=== PATIENT | male | born 1970 | race Caucasian/White ===

== ENCOUNTER 2018-06-12 08:18 | Day surgery (SDC) | payer OTHER ==
[2018-06-11 11:56] VITALS: BMI 35.5
[2018-06-12] MEDS ORDERED: MIDAZOLAM HCL 2 MG/2 ML SINGLE DOSE VIAL ONE (10:41)
--- NOTE | 2018-06-12 10:46 | HP ---
Admitting History and Physical - Admission Chief Complaint: supraumbilical bulge History of Present Illness: 47 y.o male presents with supraumbilical bulge. CT A/P showed epigastric and umbilical hernias. History Source: Patient Limitations to Obtaining History: No Limitations - Past Medical History Cardiovascular: Yes: HTN Pulmonary: Yes: Asthma, COPD Additional Past Medical History: Hyperlipidemia - Smoking History Smoking history: Never smoked - Alcohol/Substance Use Hx Alcohol Use: Yes (socially) Home Medications - Allergies Allergies/Adverse Reactions: Allergies Allergy/AdvReac Type Severity Reaction Status Date / Time No Known Allergies Allergy Verified 06/11/18 11:59 - Home Medications Home Medications: Ambulatory Orders Albuterol Sulfate Inhaler - [Ventolin HFA Inhaler -] 1 inh IH PRN PRN 06/11/18 Hydrochlorothiazide [Hctz -] 1 tab PO DAILY 06/11/18 Review of Systems - Review of Systems Constitutional: reports: No Symptoms Gastrointestinal: reports: Abdominal Pain (mild) Physical Examination Vital Signs: Vital Signs Temperature 98.0 F 06/12/18 08:39 Pulse Rate 73 06/12/18 08:39 Respiratory Rate 18 06/12/18 08:39 Blood Pressure 137/93 06/12/18 08:39 O2 Sat by Pulse Oximetry (%) 98 06/12/18 08:39 Constitutional: Yes: Well Nourished Eyes: Yes: Conjunctiva Clear HENT: Yes: Normocephalic Neck: Yes: Supple Cardiovascular: Yes: Regular Rate and Rhythm Respiratory: Yes: CTA Bilaterally Gastrointestinal: Yes: Normal Bowel Sounds, Soft, Other (partially reducible epigastric bulge) ...Rectal Exam: Yes: Deferred Imaging - Results Cat Scan: Report Reviewed, Image Reviewed Problem List - Problems (1) Umbilical hernia Assessment/Plan: robotic umbilical and epigastric hernia repair with mesh Code(s): K42.9 - UMBILICAL HERNIA WITHOUT OBSTRUCTION OR GANGRENE (2) Epigastric hernia Assessment/Plan: robotic umbilical and epigastric hernia repair with mesh Code(s): K43.9 - VENTRAL HERNIA WITHOUT OBSTRUCTION OR GANGRENE
[2018-06-12] MEDS ORDERED: BUPIVACAINE HCL/PF 0.5% (5MG/ML) 10 ML VIAL ONE (10:54)
[2018-06-12] MEDS ORDERED: DEXAMETHASONE SOD PHOSPHATE 4 MG/1 ML VIAL ONE ×2 (11:07→13:16)
[2018-06-12] MEDS ORDERED: LIDOCAINE HCL/PF 2% SDV 5ML VIAL ONE (11:10)
[2018-06-12] MEDS ORDERED: PROPOFOL 20 ML ONE ×2 (11:10)
[2018-06-12] MEDS ORDERED: ROCURONIUM BROMIDE 50 MG/5 ML VIAL ONE ×2 (11:12)
[2018-06-12] MEDS ORDERED: ceFAZolin SODIUM 1 GM VIAL ONE (11:13)
[2018-06-12] MEDS ORDERED: ceFAZolin SODIUM 1 GM VIAL IVPB ONE (11:14)
[2018-06-12] MEDS ORDERED: BUPIVACAINE HCL/PF 0.5% (5MG/ML) 10 ML VIAL IJ ONE (11:57)
[2018-06-12] MEDS ORDERED: PROMETHAZINE HCL 25 MG/1 ML VIAL IVPUSH PRN (12:35)
[2018-06-12] MEDS ORDERED: oxyCODONE HCL 5 MG TABLET PO PRN (12:35)
[2018-06-12] MEDS ORDERED: LACTATED RINGERS SOLUTION 1,000 ML IV SCH (12:45)
[2018-06-12] MEDS ORDERED: GLYCOPYRROLATE 0.2 MG/1 ML VIAL ONE (13:19)
[2018-06-12] MEDS ORDERED: NEOSTIGMINE METHYLSULFATE 0.5 MG/ML - 10 ML MDV ONE (13:19)
[2018-06-12] MEDS ORDERED: KETOROLAC TROMETHAMINE 30 MG/1 ML VIAL IVPUSH ONE (14:04)
[2018-06-12] MEDS ORDERED: ACETAMINOPHEN 1000 MG/100 ML VIAL (NON FORMULARY) IVPB ONE (14:04)
--- NOTE | 2018-06-12 14:14 | OP ---
DATE OF OPERATION: 06/12/2018 PROCEDURE: Robotically assisted laparoscopic epigastric paraumbilical umbilical hernia repair with mesh. PREOPERATIVE DIAGNOSIS: Epigastric and ventral hernia. POSTOPERATIVE DIAGNOSIS: Multiple ventral hernias, epigastric paraumbilical and umbilical hernias. SURGEON: Antolin Cline MD FRANCHISE SPECIALIST: LYNETTE Rodriguez ANESTHESIA: General endotracheal. FINDINGS ON PROCEDURE: This is a 47-year-old male who presents with supraumbilical or epigastric bulge, which was partially reducible. A CT scan of the abdomen and pelvis revealed umbilical, supraumbilical, or epigastric hernias. Patient was advised elective repair of the hernias to prevent incarceration or strangulation. Consent was obtained after discussing the risks, benefits, and alternatives of the procedure. DESCRIPTION OF PROCEDURE: Patient was brought to the operating room and placed in supine position. General endotracheal anesthesia was administered. Both arms were then tucked to the side. The abdomen was prepped and draped in the usual sterile fashion. Using 0.5% Marcaine, local anesthesia was administered at the proposed incision sites. A left subcostal 8-mm incision was made using scalpel blade No. 15 at 15 cm away from the midline. Using Veress needle technique, the pneumoperitoneum was established. This was followed by insertion of an 8-mm port. The 3D laparoscope was inserted and peritoneal cavity was carefully inspected and was noted to be free of inadvertent injury. Incarcerated omentum was noted. Two 8-mm ports were inserted at the left flank, 8 cm away from each other. The target organ was set, and the robotic arms were docked. A fenestrated bipolar forceps was inserted at the left lower quadrant port, and EndoWrist abdirizak was inserted at the left upper quadrant port. This was connected to monopolar cautery. The undersigned scrubbed out to commence the console part of the procedure. The incarcerated omentum was taken down sharply using the EndoWrist abdirizak, and 3 hernias were noted which were about 3 cm in their diameter. The parietal peritoneum when containing dense amount of fat was taken down sharply as well as the sac of the umbilical hernia. After the fat was cleared, the paraumbilical and epigastric hernias were closed transversely using the V-Loc No. 1 non-absorbable suture. The umbilical hernia was closed vertically also using the V-Loc No. 1 non-absorbable suture. The Symbotex Mesh 15 x 10 cm in size was deployed and anchored to the posterior abdominal wall with 3 V-Loc 2-0 absorbable sutures. After deployment was deemed satisfactory, the robotic arms were undocked, and the pneumoperitoneum was evacuated. The ports were removed, and the wounds were closed with subcuticular Biosyn 4-0 sutures. The wound closure was reinforced with Dermabond. Patient was successfully extubated and transferred to the post-anesthesia care unit in satisfactory condition. ESTIMATED BLOOD LOSS: About 3 mL. WOUND CLASS: Clean. The patient received 2 g of Ancef prior to the start of the procedure. Ramona [id number]
--- NOTE | 2018-06-12 14:27 | OP ---
Operative Note - Note: Operative Date: 06/12/18 Pre-Operative Diagnosis: epigastric and umbilical hernias. Operation: robotic assisted laparoscopic umbilical and epigastric hernia repair with mesh Post-Operative Diagnosis: Same as Pre-op Surgeon: Antolin Cline Parole Or Probation Officer: Anny Martin Anesthesiologist/COVERED BUTTON MAKER: Zhang Covarrubias Anesthesia: General Estimated Blood Loss (mls): 10 Fluid Volume Replaced (mls): 1,400 Operative Report Dictated: Yes
--- NOTE | 2018-06-12 14:28 | SURG ---
Surgery Hair Designer Note Hair Designer: Anny Martin PA-C Diagnosis: umbilical and epigastric hernias Procedure: robotic assisted laparoscopic umbilical and epigastric hernia repair with mesh I was present for the entirety of the operative procedure. For further detail, please refer to operative report. Visit type - Case Type Case Type: Scheduled - Emergency Emergency Visit: No - New patient This patient is new to me today: Yes Date on this admission: 06/12/18
[2018-06-12 16:26] VITALS: TEMP 97.3
[2018-06-12] MEDS ORDERED: ONDANSETRON 4 MG/2 ML VIAL IVPUSH ONE (16:58)
[2018-06-12] MEDS ORDERED: ONDANSETRON 4 MG/2 ML VIAL IVPB ONE (17:00)
[2018-06-12] MEDS ORDERED: ONDANSETRON 4 MG/2 ML VIAL ONE (17:01)
[2018-06-12] MEDS ORDERED: oxyCODONE HCL 5 MG TABLET PO ONE (17:50)
[2018-06-12] MEDS ORDERED: oxyCODONE HCL 5 MG TABLET ONE (17:51)
[2018-06-12 19:18] VITALS: BP 121/75; PULSE 71
== END 2018-06-12 19:10 | disposition home or self-care (01) ==
LOC: JASU-SURG 08:18
PROVIDERS: ATTEND Surgery
PROC: 8E0W4CZ Robotic Assisted Procedure of Trunk Region, Percutaneous Endoscopic Approach (ICD-10-PCS; 2018-06-12)
PROC: 0WUF4JZ Supplement Abdominal Wall with Synthetic Substitute, Percutaneous Endoscopic Approach (ICD-10-PCS; 2018-06-12)
PROC: 8E0W4CZ Robotic Assisted Procedure of Trunk Region, Percutaneous Endoscopic Approach (ICD-10-PCS; 2018-06-12)
PROC: 0WUF4JZ Supplement Abdominal Wall with Synthetic Substitute, Percutaneous Endoscopic Approach (ICD-10-PCS; principal; 2018-06-12 11:00)
DX: K43.9 Ventral hernia without obstruction or gangrene (principal); K42.0 Umbilical hernia with obstruction, without gangrene
CPT/HCPCS: 49653; S2900; 94760; J0131